=== PATIENT | male | born 1955 | race Caucasian/White ===

== ENCOUNTER 2023-02-13 15:26 | Day surgery (SDC) | payer MEDICARE, OTHER | END 2023-02-13 16:00 | disposition home or self-care (01) | LOC: SDC-PAIN 15:26 | PROVIDERS: ATTEND Psychiatry & Neurology Pain Medicine | DX: Z53.8 Procedure and treatment not carried out for other reasons (principal); R73.9 Hyperglycemia, unspecified | CPT/HCPCS: 82947 ==

== ENCOUNTER 2023-04-03 08:21 | Day surgery (SDC) | payer MEDICARE, OTHER ==
[2023-04-03] MEDS ORDERED: LIDOCAINE HCL 2% 100 MG/5 ML IJ ONE (08:22)
[2023-04-03] MEDS ORDERED: Depo-Medrol 40 MG/ML IM ONE (08:22)
[2023-04-03] MEDS ORDERED: DIPRIVAN 200 MG/20 ML IV ONE (10:31)
--- NOTE | 2023-04-03 14:26 | XRAY ---
Indication: Bilateral L4-S1 MBB. Intraoperative fluoroscopy provided for 22 seconds. 2 digital spot images submitted for interpretation demonstrates posterior needle tips projecting over the expected left and right L4-S1 nerve roots. Correlate with intraoperative findings/report. Incidental bilateral L4-L5 posterior fusion hardware.
[2023-04-03] MEDS ORDERED: Lactated Ringers 1,000 ML IV ONE (14:50)
--- NOTE | 2023-04-03 15:00 | XRAY ---
22 seconds of fluoroscopy was used in surgery for a bilateral L4-S1 MBB.
== END 2023-04-03 11:00 | disposition home or self-care (01) ==
LOC: SDC-PAIN 08:21
PROVIDERS: ATTEND Psychiatry & Neurology Pain Medicine
DX: M47.816 Spondylosis without myelopathy or radiculopathy, lumbar region (principal); E11.9 Type 2 diabetes mellitus without complications
CPT/HCPCS: 64493; 64494; 72020; 77002; 82947; J1030; J2704

== ENCOUNTER 2023-05-22 08:10 | Day surgery (SDC) | payer MEDICARE, OTHER ==
[2023-05-22] MEDS ORDERED: Depo-Medrol 40 MG/ML IM ONE (08:11)
[2023-05-22] MEDS ORDERED: BUPIVACAINE 0.5% VIAL IJ ONE (08:11)
[2023-05-22] MEDS ORDERED: DIPRIVAN 200 MG/20 ML IV ONE (10:16)
--- NOTE | 2023-05-22 11:44 | XRAY ---
Indication: Bilateral L4-S1 MBB. Intraoperative fluoroscopy provided for 29 seconds. 5 digital spot images submitted for interpretation demonstrates posterior needle tips projecting over the expected left and right L4-S1 nerve roots. Correlate with intraoperative findings/report. Incidental bilateral L4-L5 posterior fusion hardware.
--- NOTE | 2023-05-22 12:20 | XRAY ---
29 seconds of fluoroscopy was used in surgery for a bilateral L4-S1 MBB.
[2023-05-22] MEDS ORDERED: Lactated Ringers 1,000 ML IV ONE (15:30)
== END 2023-05-22 10:46 | disposition home or self-care (01) ==
LOC: SDC-PAIN 08:10
PROVIDERS: ATTEND Psychiatry & Neurology Pain Medicine
DX: M47.816 Spondylosis without myelopathy or radiculopathy, lumbar region (principal); E11.9 Type 2 diabetes mellitus without complications; Z79.899 Other long term (current) drug therapy
CPT/HCPCS: 64493; 64494; 72020; 77002; 82947; J1030; J2704

== ENCOUNTER 2023-07-03 09:59 | Day surgery (SDC) | payer MEDICARE, OTHER ==
[2023-07-03] MEDS ORDERED: XYLOCAINE-MPF 1% 5ML SDV IJ ONE (10:00)
[2023-07-03] MEDS ORDERED: Depo-Medrol 40 MG/ML IM ONE (10:00)
[2023-07-03] MEDS ORDERED: BUPIVACAINE 0.5% VIAL IJ ONE (10:00)
[2023-07-03] MEDS ORDERED: DIPRIVAN 200 MG/20 ML IV ONE (12:15)
--- NOTE | 2023-07-03 14:19 | XRAY ---
Indication: Right L4-S1 RFA. Intraoperative fluoroscopy provided for 21 seconds. 6 digital spot images submitted for interpretation demonstrates posterior needle tips projecting over the the right L4-S1 nerve roots. Correlate with intraoperative findings/report.
[2023-07-03] MEDS ORDERED: Lactated Ringers 1,000 ML IV ONE (14:23)
--- NOTE | 2023-07-03 15:07 | XRAY ---
21 seconds of fluoroscopy was used in surgery for a right L4-S1 RFA.
== END 2023-07-03 12:53 | disposition home or self-care (01) ==
LOC: SDC-PAIN 09:59
PROVIDERS: ATTEND Psychiatry & Neurology Pain Medicine
DX: M47.816 Spondylosis without myelopathy or radiculopathy, lumbar region (principal); E11.9 Type 2 diabetes mellitus without complications
CPT/HCPCS: 64635; 64636; 72100; 77002; 82947; J1030; J2704; Q9966

== ENCOUNTER 2023-07-10 09:51 | Day surgery (SDC) | payer MEDICARE, OTHER ==
[2023-07-10] MEDS ORDERED: XYLOCAINE-MPF 1% 5ML SDV IJ ONE (09:52)
[2023-07-10] MEDS ORDERED: BUPIVACAINE 0.5% VIAL IJ ONE (09:52)
[2023-07-10] MEDS ORDERED: Depo-Medrol 40 MG/ML IM ONE (09:52)
[2023-07-10] MEDS ORDERED: DIPRIVAN 200 MG/20 ML IV ONE ×2 (12:47→12:58)
[2023-07-10] MEDS ORDERED: Lactated Ringers 1,000 ML IV ONE (13:45)
--- NOTE | 2023-07-10 14:39 | XRAY ---
Indication: Left L4-S1 RFA. Intraoperative fluoroscopy provided 21 seconds. 5 digital spot images submitted for interpretation demonstrates posterior needle tips projecting over the expected left L4-S1 nerve roots. Correlate with intraoperative findings/report. Incidental bilateral L4-L5 posterior fusion hardware.
--- NOTE | 2023-07-10 15:10 | XRAY ---
21 seconds of fluoroscopy was used in surgery for a left L4-S1 RFA.
== END 2023-07-10 12:25 | disposition home or self-care (01) ==
LOC: SDC-PAIN 09:51
PROVIDERS: ATTEND Psychiatry & Neurology Pain Medicine
DX: M47.816 Spondylosis without myelopathy or radiculopathy, lumbar region (principal); E11.9 Type 2 diabetes mellitus without complications
CPT/HCPCS: 64635; 64636; 72100; 77002; 82947; J1030; J2704

== ENCOUNTER 2023-08-14 09:30 | Day surgery (SDC) | payer MEDICARE, OTHER ==
[2023-08-14] MEDS ORDERED: BUPIVACAINE 0.5% VIAL IJ ONE (09:31)
[2023-08-14] MEDS ORDERED: DIPRIVAN 200 MG/20 ML IV ONE (11:06)
[2023-08-14] MEDS ORDERED: Lactated Ringers 1,000 ML IV ONE (12:27)
--- NOTE | 2023-08-14 12:55 | XRAY ---
Indication: Left knee genicular nerve block. Intraoperative fluoroscopy provided for 17 seconds. 2 digital spot image left knee submitted for interpretation demonstrate anterior needle tips projecting medial/lateral supracondylar and medial tibial plateau. Correlate with intraoperative findings/report.
--- NOTE | 2023-08-14 13:00 | XRAY ---
17 seconds of fluoroscopy was used in surgery for a left genicular nerve block.
== END 2023-08-14 11:38 | disposition home or self-care (01) ==
LOC: SDC-PAIN 09:30
PROVIDERS: ATTEND Psychiatry & Neurology Pain Medicine
DX: M17.12 Unilateral primary osteoarthritis, left knee (principal); E11.9 Type 2 diabetes mellitus without complications
CPT/HCPCS: 64454; 73560; 77002; 82947; J2704